=== PATIENT | male | born 1965 | race Caucasian/White ===

== ENCOUNTER 2018-12-01 10:52 | Emergency (ER) | payer SELFPAY ==
[2018-12-01] MEDS ORDERED: LIDOCAINE 1% MPF 5 ML VIAL ONE (11:29)
[2018-12-01] MEDS ORDERED: BUPIVACAINE 0.5% PF 10 ML VIAL ONE (11:30)
[2018-12-01] MEDS ORDERED: TETANUS & DIPHTHERIA TOX,ADULT 0.5 ML VIAL ONE (11:30)
[2018-12-01] MEDS ORDERED: CLINDAMYCIN 900MG/D5W 900 MG/50 ML IVPB IV ONE (12:32)
--- NOTE | 2018-12-01 12:35 | RAD REPORT ---
EXAM DESCRIPTION: RAD -Hand Left 3 View - 12/01/2018 11:24 am CLINICAL HISTORY: Left hand pain status post injury FINDINGS: Amputation involves a portion of the second distal phalanx. A comminuted displaced fractur e is present. No dislocation seen
--- NOTE | 2018-12-01 12:54 | ER ---
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 Transition of care: patient was not received from another setting of care. Onset of symptoms was December 01, 2018. Care prior to arrival: None. 10:56 Method Of Arrival: Ambulatory sv 10:56 Acuity: BETO 2 sv 14:44 Risk Assessment: Do you want to hurt yourself or someone else? Patient reports no aj desire to harm self or others. Initial Sepsis Screen: Does the patient meet any 2 criteria? No. Patient's initial sepsis screen is negative. Does the patient have a suspected source of infection? No. Patient's initial sepsis screen is negative. Triage Assessment: 10:56 General: Appears uncomfortable, Behavior is calm, cooperative, appropriate for age. sv Pain: Complains of pain in dorsal aspect of distal phalanx of left index finger. Neuro: Level of Consciousness is awake, alert, obeys commands, Oriented to person, place, time, situation, Moves all extremities. Gait is steady. Respiratory: Respiratory effort is even, unlabored, Respiratory pattern is regular, symmetrical. Injury Description: Amputation sustained to dorsal aspect of distal phalanx of left index finger is complete, contaminated, was sustained less than 30 minutes ago. Historical: - Allergies: 10:58 PENICILLINS; sv - PSHx: 10:58 right wrist; sv - Immunization history:: Last tetanus immunization: unknown. - Social history:: Smoking status: Patient/guardian denies using tobacco. - Ebola Screening: : Patient negative for fever greater than or equal to 101.5 degrees Fahrenheit, and additional compatible Ebola Virus Disease symptoms Patient denies exposure to infectious person Patient denies travel to an Ebola-affected area in the 21 days before illness onset No symptoms or risks identified at this time. Screenin:11 Abuse screen: Denies threats or abuse. Denies injuries from another. Nutritional aj screening: No deficits noted. Tuberculosis screening: No symptoms or risk factors identified. Fall Risk None identified. Assessment: 11:11 General: Appears in no apparent distress. comfortable, Behavior is calm, cooperative, aj appropriate for age. Pain: Complains of pain in dorsal aspect of distal phalanx of left index finger. Neuro: Level of Consciousness is awake, alert, obeys commands, Oriented to person, place, time, situation, Appropriate for age. Respiratory: Airway is patent Respiratory effort is even, unlabored, Respiratory pattern is regular, symmetrical. Derm: Skin is intact, is healthy with good turgor, Skin is pink, warm \T\ dry. normal. Musculoskeletal: Amputation of dorsal aspect of distal phalanx of left index finger. Reports pain in dorsal aspect of distal phalanx of left index finger. Vital Signs: 10:58 BP 180 / 100; Pulse 61; Resp 20; Temp 98.7; Pulse Ox 95% ; Weight 127.01 kg; Height 5 sv ft. 11 in. (180.34 cm); 13:02 BP 160 / 90; Pulse 63; Resp 20; Pulse Ox 96% on R/A; aj 10:58 Body Mass Index 39.05 (127.01 kg, 180.34 cm) sv ED Course: 10:55 Patient arrived in ED. mr 10:55 None, None is Private Physician. mr 10:56 Triage completed. sv 10:56 Arm band placed on Patient placed in an exam room, on a stretcher. Pressure dressing sv applied. 11:03 Cj Reid PA is PHCP. cp 11:03 Cj Arguello MD is Attending Physician. cp 11:04 Alma Rosa Hines, AMINTA is Primary Nurse. aj 11:11 Patient has correct armband on for positive identification. aj 11:28 XRAY Hand LEFT 3 View In Process Unspecified. EDMS 12:28 Inserted saline lock: 20 gauge in right antecubital area, using aseptic technique. aj 13:04 Report given to Jessenia LEMOS. aj 13:15 \T\[id number] initiated a transfer with Jennifer Jorge RN at the [facility] transfer ms center/ \T\[id number] administrative approval given by Dr.Koepplinger Rodriguez M has accepted the patient in transfer, patient is going to the ER and report to be called to [phone]. 14:44 No provider procedures requiring assistance completed. Patient did not have IV access aj during this emergency room visit. Administered Medications: 11:25 Drug: Tetanus-Diphtheria Toxoid Adult 0.5 ml {Composition Stone [employer]ator: [employer]. Exp: aj 11/30/2020. Lot #: [id number]. } Route: IM; Site: right deltoid; 14:46 Follow up: Response: No adverse reaction aj 12:30 Drug: Clindamycin 900 mg Route: IVPB; Infused Over: 30 mins; Site: right antecubital; aj 14:00 Follow up: Response: No adverse reaction; IV Status: Completed infusion; IV Intake: 50mlaj 12:31 Drug: Lidocaine (1 %) 5 ml Volume: 5 ml; Route: Infiltration; aj 12:31 Drug: Marcaine (0.5 %) 5 ml Volume: 10 ml; Route: Infiltration; aj 13:00 Drug: morphine 4 mg Route: IVP; Site: right antecubital; aj 14:46 Follow up: Response: Pain is decreased aj 13:00 Drug: Zofran 4 mg Route: IVP; Site: right antecubital; aj 14:47 Follow up: Response: No adverse reaction aj Intake: 14:00 IV: 50ml; Total: 50ml. aj Outcome: 12:53 ER care complete, transfer ordered by . cp 14:44 Transferred by ground EMS to [facility], Transfer form completed. X-rays sent aj w/ patient. 14:44 Condition: good 14:44 Instructed on the need for transfer, Demonstrated understanding of instructions. 14:47 Patient left the ED. aj Signatures: Dispatcher [employer] Elizabeth Collazo RN RN sv Myers, Amanda, RN RN aj Rivera, Mary mr Solis, Cj Rivas ms, LETI PA cp Corrections: (The following items were deleted from the chart) 11:03 10:56 Acuity: BETO 3 sv sv 11:21 10:58 Pulse 61bpm; Resp 20bpm; Pulse Ox 95%; Temp 98.7F; 127.01 kg; Height 5 ft. 11 sv in.; BMI: 39.0; sv
--- NOTE | 2018-12-01 12:55 | EDPHYS ---
Physician Documentation [facility] Name: Roland Calix Age: 53 yrs Sex: Male : 1965 Arrival Date: 12/01/2018 Time: 10:55 Bed 7 Private MD: None, None ED Physician Cj Arguello HPI: 12/01 11:00 This 53 yrs old Male presents to ER via Ambulatory with complaints of Finger cp Injury. 11:00 The patient or guardian reports injury, pain. cp 11:00 The complaints affect the distal phalanx left index finger. Context: resulted from use cp of tablesaw. Onset: The symptoms/episode began/occurred just prior to arrival. Associated signs and symptoms: Pertinent positives: decreased sensation distally. Historical: - Allergies: 10:58 PENICILLINS; sv - PSHx: 10:58 right wrist; sv - Immunization history:: Last tetanus immunization: unknown. - Social history:: Smoking status: Patient/guardian denies using tobacco. - Ebola Screening: : Patient negative for fever greater than or equal to 101.5 degrees Fahrenheit, and additional compatible Ebola Virus Disease symptoms Patient denies exposure to infectious person Patient denies travel to an Ebola-affected area in the 21 days before illness onset No symptoms or risks identified at this time. ROS: 11:05 Constitutional: Negative for body aches, chills, fever, poor PO intake. cp 11:05 Eyes: Negative for injury, pain, redness, and discharge. cp 11:05 ENT: Negative for drainage from ear(s), ear pain, sore throat, difficulty swallowing, difficulty handling secretions. 11:05 Cardiovascular: Negative for chest pain, palpitations. 11:05 Respiratory: Negative for cough, shortness of breath, wheezing. 11:05 Abdomen/GI: Negative for abdominal pain, nausea, vomiting, and diarrhea. 11:05 MS/extremity: Positive for injury or acute deformity, pain, of the distal phalanx left index finger. 11:05 Neuro: Negative for altered mental status, headache, weakness. 11:05 All other systems are negative. Exam: 11:15 Constitutional: The patient appears in no acute distress, alert, awake, well developed, cp well nourished. 11:15 Head/Face: Normocephalic, atraumatic. cp 11:15 Eyes: Periorbital structures: appear normal, Conjunctiva: normal, no exudate, no cp injection, Lids and lashes: appear normal, bilaterally. 11:15 ENT: External ear(s): are unremarkable, Nose: is normal, Mouth: Lips: moist, Oral mucosa: pink and intact, moist, Posterior pharynx: is normal, airway is patent, no erythema, no exudate. 11:15 Chest/axilla: Inspection: normal, Palpation: is normal, no crepitus, no tenderness. cp 11:15 Cardiovascular: Rate: normal, Rhythm: regular, Pulses: Pulses are 2+ in right radial artery and left radial artery. 11:15 Respiratory: the patient does not display signs of respiratory distress, Respirations: normal, no use of accessory muscles, no retractions, no splinting, no tachypnea, labored breathing, is not present, Breath sounds: are clear throughout, no decreased breath sounds, no stridor, no wheezing. 11:15 Abdomen/GI: Exam negative for discomfort, distension, guarding, Inspection: abdomen appears normal. 11:15 Musculoskeletal/extremity: Extremities: grossly normal except: noted in the distal phalanx left index finger: pain, tenderness, amputation, Perfusion: the extremity is normally perfused throughout, decreased sensation. Vital Signs: 10:58 BP 180 / 100; Pulse 61; Resp 20; Temp 98.7; Pulse Ox 95% ; Weight 127.01 kg; Height 5 sv ft. 11 in. (180.34 cm); 13:02 BP 160 / 90; Pulse 63; Resp 20; Pulse Ox 96% on R/A; aj 10:58 Body Mass Index 39.05 (127.01 kg, 180.34 cm) sv MDM: 11:06 Patient medically screened. cp 12:50 Data reviewed: vital signs, nurses notes, radiologic studies, plain films. cp 12:50 Differential diagnosis: open fracture. Counseling: I had a detailed discussion with the patient and/or guardian regarding: the historical points, exam findings, and any diagnostic results supporting the discharge/admit diagnosis, radiology results, the need to transfer to another facility, [facility] does not immediately have the required specialist. 12/01 11:05 Order name: XRAY Hand LEFT 3 View; Complete Time: 12:49 12/01 12:50 Interpretation: Report reviewed. cp 12/01 12:04 Order name: IV; Complete Time: 12:31 cp Administered Medications: 11:25 Drug: Tetanus-Diphtheria Toxoid Adult 0.5 ml {Travel Pt: [employer]. Exp: aj 11/30/2020. Lot #: [id number]. } Route: IM; Site: right deltoid; 14:46 Follow up: Response: No adverse reaction aj 12:30 Drug: Clindamycin 900 mg Route: IVPB; Infused Over: 30 mins; Site: right antecubital; aj 14:00 Follow up: Response: No adverse reaction; IV Status: Completed infusion; IV Intake: 50mlaj 12:31 Drug: Lidocaine (1 %) 5 ml Volume: 5 ml; Route: Infiltration; aj 12:31 Drug: Marcaine (0.5 %) 5 ml Volume: 10 ml; Route: Infiltration; aj 13:00 Drug: morphine 4 mg Route: IVP; Site: right antecubital; aj 14:46 Follow up: Response: Pain is decreased aj 13:00 Drug: Zofran 4 mg Route: IVP; Site: right antecubital; aj 14:47 Follow up: Response: No adverse reaction aj Disposition: 12/01/18 12:53 Transfer ordered to [facility]. 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 - Reason for transfer: Higher level of care. - Accepting physician is DR Howard. - Condition is Stable. - Problem is new. - Symptoms have improved. Addendum: 12/04/2018 05:28 Co-signature as Attending Physician, Cj Arguello MD I agree with the assessment and c hughes plan of care. Signatures: Dispatcher [employer] Elizabeth Collazo RN RN sv Myers, Amanda, RN RN aj Anderson, Corey, MD MD cha Page, Corey, PA PA cp Corrections: (The following items were deleted from the chart) 12/01 14:47 12:53 12/01/2018 12:53 Transfer ordered to [facility]. 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 Reason for transfer: Higher level of care. Accepting physician is DR Howard. Condition is Stable. Problem is new. Symptoms have improved. cp
[2018-12-01] MEDS ORDERED: ONDANSETRON 4 MG/2 ML VIAL ONE (13:07)
[2018-12-01] MEDS ORDERED: MORPHINE 4 MG/ML SYR ONE (13:07)
== END 2018-12-01 14:47 | disposition short-term general hospital (02) ==
LOC: ER 10:52
DX: S68.611A Complete traumatic transphalangeal amputation of left index finger, initial encounter (principal); W29.8XXA Contact with other powered hand tools and household machinery, initial encounter; Y93.9 Activity, unspecified; Y92.9 Unspecified place or not applicable; Z23 Encounter for immunization; Z88.0 Allergy status to penicillin
CPT/HCPCS: 90714; 96365; 96375; 99285; J2405